=== PATIENT | female | born 1995 | race Caucasian/White ===

== ENCOUNTER 2018-02-19 22:48 | Inpatient (IN) | payer BC, OTHER ==
[2018-02-19] MEDS ORDERED: SODIUM CHLORIDE 0.9% 1,000 ML IV STA (23:01)
--- NOTE | 2018-02-19 23:19 | ED ---
General Adult HPI - General Source: patient, RN notes reviewed, old records reviewed Mode of arrival: ambulatory Limitations: no limitations <Eligio Ely - Last Filed: 02/19/18 23:18> <Masha Levy - Last Filed: 02/20/18 05:17> - General Chief complaint: Overdose Stated complaint: poss overdose Time Seen by Provider: 02/19/18 23:01 - History of Present Illness Initial comments: This is a 22-year-old female the ER for evaluation, patient resents regarding suicidal attempt, suicidal thoughts and activity. Patient did take overdose night patient states she took Seroquel and positive alcohol. Patient admits that she took all medications in attempt at suicide (Eligio Ely) - Related Data Home Medications Medication Instructions Recorded Confirmed Escitalopram [Lexapro] 1 tab PO DAILY 02/19/18 02/19/18 Allergies Allergy/AdvReac Type Severity Reaction Status Date / Time No Known Allergies Allergy Verified 02/19/18 22:51 Review of Systems ROS Other: All systems not noted in ROS Statement are negative. <Eligio Ely - Last Filed: 02/19/18 23:18> ROS Other: All systems not noted in ROS Statement are negative. <Masha Levy - Last Filed: 02/20/18 05:17> ROS Statement: Those systems with pertinent positive or pertinent negative responses have been documented in the HPI. Past Medical History Past Medical History: No Reported History History of Any Multi-Drug Resistant Organisms: None Reported Past Surgical History: No Surgical Hx Reported Past Psychological History: Anxiety, Depression Smoking Status: Never smoker Past Alcohol Use History: Occasional Past Drug Use History: None Reported <Eligio Ely - Last Filed: 02/19/18 23:18> General Exam Limitations: no limitations General appearance: alert, in no apparent distress, anxious Head exam: Present: atraumatic, normocephalic, normal inspection Eye exam: Present: normal appearance, PERRL, EOMI. Absent: scleral icterus, conjunctival injection, periorbital swelling ENT exam: Present: normal exam, mucous membranes moist Neck exam: Present: normal inspection. Absent: tenderness, meningismus, lymphadenopathy Respiratory exam: Present: normal lung sounds bilaterally. Absent: respiratory distress, wheezes, rales, rhonchi, stridor Cardiovascular Exam: Present: regular rate, normal rhythm, normal heart sounds. Absent: systolic murmur, diastolic murmur, rubs, gallop, clicks GI/Abdominal exam: Present: soft, normal bowel sounds. Absent: distended, tenderness, guarding, rebound, rigid Extremities exam: Present: normal inspection, full ROM, normal capillary refill. Absent: tenderness, pedal edema, joint swelling, calf tenderness Back exam: Present: normal inspection Neurological exam: Present: alert, oriented X3, CN II-XII intact Psychiatric exam: Present: normal affect, normal mood Skin exam: Present: warm, dry, intact, normal color. Absent: rash <Eligio Ely - Last Filed: 02/19/18 23:18> Course <Eligio Ely - Last Filed: 02/19/18 23:18> <Masha Levy - Last Filed: 02/20/18 05:17> Vital Signs 02/19/18 02/19/18 02/19/18 22:51 23:04 23:21 Temperature 98.4 F Pulse Rate 119 H 84 Respiratory 18 18 18 Rate Blood Pressure 146/97 125/82 O2 Sat by Pulse 97 98 Oximetry 02/20/18 02/20/18 02/20/18 00:18 01:31 02:51 Temperature 98.2 F 97.7 F Pulse Rate 76 96 83 Respiratory 18 18 18 Rate Blood Pressure 117/75 105/59 108/65 O2 Sat by Pulse 100 97 95 Oximetry 02/20/18 02/20/18 03:39 05:00 Temperature Pulse Rate 76 76 Respiratory 18 18 Rate Blood Pressure 105/67 112/73 O2 Sat by Pulse 97 97 Oximetry Second repeat EKG EKG was done 3:12 AM, is normal sinus rhythm ventricular rate is 81 IL interval is 1:30 QRS duration is 76 QT/QTc is 42/466 review of this EKG reveals T-wave inversion in lead 3 and lead aVF no ST elevation or ST depression noticed in the other leads (Masha Levy) EKG Findings - EKG Comments: EKG Findings:: EKG shows normal sinus rhythm rate of 99, IL 120, QRS 70, QTc 472 <Eligio Ely Last Filed: 02/19/18 23:18> Medical Decision Making - Lab Data Result diagrams: 02/19/18 23:09 02/19/18 23:09 <CamMasha - Last Filed: 02/20/18 05:17> - Lab Data Lab Results 02/19/18 02/19/18 02/19/18 Range/Units 23:09 23:09 23:09 WBC 6.2 (3.8-10.6) k/uL RBC 4.66 (3.80-5.40) m/uL Hgb 14.6 (11.4-16.0) gm/dL Hct 43.7 (34.0-46.0) % MCV 93.8 (80.0-100.0) fL MCH 31.3 (25.0-35.0) pg MCHC 33.4 (31.0-37.0) g/dL RDW 12.4 (11.5-15.5) % Plt Count 242 (150-450) k/uL Neutrophils % 43 % Lymphocytes % 49 % Monocytes % 4 % Eosinophils % 2 % Basophils % 1 % Neutrophils # 2.6 (1.3-7.7) k/uL Lymphocytes # 3.0 (1.0-4.8) k/uL Monocytes # 0.2 (0-1.0) k/uL Eosinophils # 0.1 (0-0.7) k/uL Basophils # 0.1 (0-0.2) k/uL PT (9.0-12.0) sec INR (<1.2) Sodium 146 H (137-145) mmol/L Potassium 4.0 (3.5-5.1) mmol/L Chloride 106 (98-107) mmol/L Carbon Dioxide 26 (22-30) mmol/L Anion Gap 14 mmol/L BUN 12 (7-17) mg/dL Creatinine 0.78 (0.52-1.04) mg/dL Est GFR (CKD-EPI)AfAm >90 (>60 ml/min/1.73 sqM) Est GFR (CKD-EPI)NonAf >90 (>60 ml/min/1.73 sqM) Glucose 81 (74-99) mg/dL Calcium 9.3 (8.4-10.2) mg/dL Total Bilirubin 0.3 (0.2-1.3) mg/dL AST 28 (14-36) U/L ALT 35 (9-52) U/L Alkaline Phosphatase 61 (38-126) U/L Total Creatine Kinase 368 H (30-135) U/L CK-MB (CK-2) 5.7 H* (0.0-2.4) ng/mL CK-MB (CK-2) Rel Index 1.5 Total Protein 7.4 (6.3-8.2) g/dL Albumin 4.7 (3.5-5.0) g/dL Lipase 114 (23-300) U/L Urine Color Urine Appearance (Clear) Urine pH (5.0-8.0) Ur Specific [place] (1.001-1.035) Urine Protein (Negative) Urine Glucose (UA) (Negative) Urine Ketones (Negative) Urine Blood (Negative) Urine Nitrite (Negative) Urine Bilirubin (Negative) Urine Urobilinogen (<2.0) mg/dL Ur Leukocyte Esterase (Negative) Urine HCG, Qual (Not Detectd) Salicylates <1.0 mg/dL Urine Opiates Screen (NotDetected) Ur Oxycodone Screen (NotDetected) Urine Methadone Screen (NotDetected) Ur Propoxyphene Screen (NotDetected) Acetaminophen <10.0 ug/mL Ur Barbiturates Screen (NotDetected) U Tricyclic Antidepress (NotDetected) Ur Phencyclidine Scrn (NotDetected) Ur Amphetamines Screen (NotDetected) U Methamphetamines Scrn (NotDetected) U Benzodiazepines Scrn (NotDetected) Urine Cocaine Screen (NotDetected) U Marijuana (THC) Screen (NotDetected) Serum Alcohol 163 mg/dL 02/19/18 02/19/18 02/19/18 Range/Units 23:09 23:09 23:09 WBC (3.8-10.6) k/uL RBC (3.80-5.40) m/uL Hgb (11.4-16.0) gm/dL Hct (34.0-46.0) % MCV (80.0-100.0) fL MCH (25.0-35.0) pg MCHC (31.0-37.0) g/dL RDW (11.5-15.5) % Plt Count (150-450) k/uL Neutrophils % % Lymphocytes % % Monocytes % % Eosinophils % % Basophils % % Neutrophils # (1.3-7.7) k/uL Lymphocytes # (1.0-4.8) k/uL Monocytes # (0-1.0) k/uL Eosinophils # (0-0.7) k/uL Basophils # (0-0.2) k/uL PT 10.1 (9.0-12.0) sec INR 1.0 (<1.2) Sodium (137-145) mmol/L Potassium (3.5-5.1) mmol/L Chloride (98-107) mmol/L Carbon Dioxide (22-30) mmol/L Anion Gap mmol/L BUN (7-17) mg/dL Creatinine (0.52-1.04) mg/dL Est GFR (CKD-EPI)AfAm (>60 ml/min/1.73 sqM) Est GFR (CKD-EPI)NonAf (>60 ml/min/1.73 sqM) Glucose (74-99) mg/dL Calcium (8.4-10.2) mg/dL Total Bilirubin (0.2-1.3) mg/dL AST (14-36) U/L ALT (9-52) U/L Alkaline Phosphatase (38-126) U/L Total Creatine Kinase (30-135) U/L CK-MB (CK-2) (0.0-2.4) ng/mL CK-MB (CK-2) Rel Index Total Protein (6.3-8.2) g/dL Albumin (3.5-5.0) g/dL Lipase (23-300) U/L Urine Color Colorless Urine Appearance Clear (Clear) Urine pH 5.5 (5.0-8.0) Ur Specific [place] 1.003 (1.001-1.035) Urine Protein Negative (Negative) Urine Glucose (UA) Negative (Negative) Urine Ketones Negative (Negative) Urine Blood Negative (Negative) Urine Nitrite Negative (Negative) Urine Bilirubin Negative (Negative) Urine Urobilinogen <2.0 (<2.0) mg/dL Ur Leukocyte Esterase Negative (Negative) Urine HCG, Qual Not Detected (Not Detectd) Salicylates mg/dL Urine Opiates Screen Not Detected (NotDetected) Ur Oxycodone Screen Not Detected (NotDetected) Urine Methadone Screen Not Detected (NotDetected) Ur Propoxyphene Screen Not Detected (NotDetected) Acetaminophen ug/mL Ur Barbiturates Screen Not Detected (NotDetected) U Tricyclic Antidepress Not Detected (NotDetected) Ur Phencyclidine Scrn Not Detected (NotDetected) Ur Amphetamines Screen Not Detected (NotDetected) U Methamphetamines Scrn Not Detected (NotDetected) U Benzodiazepines Scrn Not Detected (NotDetected) Urine Cocaine Screen Not Detected (NotDetected) U Marijuana (THC) Screen Not Detected (NotDetected) Serum Alcohol mg/dL Disposition <Eligio Ely - Last Filed: 02/19/18 23:18> <Masha Levy - Last Filed: 02/20/18 05:17> Clinical Impression: Suicidal ideation Disposition: ADMITTED IP TO THIS [facility] Condition: Good Referrals: Renny Mae Jr, DO [Primary Care Provider] - 1-2 days
[2018-02-19 23:26] LABS: Basophils # (A) 0.1 k/uL (0-0.2); Basophils % (A) 1 %; Eosinophils # (A) 0.1 k/uL (0-0.7); Eosinophils % (A) 2 %; HCT 43.7 % (34.0-46.0); HGB 14.6 gm/dL (11.4-16.0); Lymphocytes % (A) 49 %; MCH 31.3 pg (25.0-35.0); MCHC 33.4 g/dL (31.0-37.0); MCV 93.8 fL (80.0-100.0); Mean Platelet Volume 6.9; Monocytes # (A) 0.2 k/uL (0-1.0); Monocytes % (A) 4 %; Neutrophils # (A) 2.6 k/uL (1.3-7.7); Neutrophils % (A) 43 %; Platelet Count 242 k/uL (150-450); RBC 4.66 m/uL (3.80-5.40); RDW 12.4 % (11.5-15.5); WBC 6.2 k/uL (3.8-10.6)
[2018-02-19 23:29] LABS: Appearance,Urine Clear (Clear); Bilirubin,Urine Negative (Negative); Blood,Urine Negative (Negative); Color,Urine Colorless; Glucose,Urine (UA) Negative (Negative); Ketones,Urine Negative (Negative); Leukocyte Esterase,Urine Negative (Negative); Nitrite,Urine Negative (Negative); PH, Urine 5.5 (5.0-8.0); Protein,Urine Negative (Negative); Specific Gravity,Urine 1.003 (1.001-1.035); Urobilinogen,Urine <2.0 mg/dL (<2.0)
[2018-02-19 23:34] LABS: Prothrombin Time 10.1 sec (9.0-12.0)
[2018-02-19 23:41] LABS: ALT 35 U/L (9-52); AST 28 U/L (14-36); Acetaminophen <10.0 ug/mL; Albumin 4.7 g/dL (3.5-5.0); Alkaline Phosphatase 61 U/L (38-126); Anion Gap 14 mmol/L; Blood Urea Nitrogen 12 mg/dL (7-17); Calcium 9.3 mg/dL (8.4-10.2); Carbon Dioxide 26 mmol/L (22-30); Chloride 106 mmol/L (98-107); Glucose 81 mg/dL (74-99); Lipase 114 U/L (23-300); Salicylate <1.0 mg/dL; Sodium 146 mmol/L (137-145); Total Bilirubin 0.3 mg/dL (0.2-1.3); Total Protein 7.4 g/dL (6.3-8.2)
[2018-02-19 23:44] LABS: Alcohol 163 mg/dL
[2018-02-20 00:02] LABS: Creatine Kinase MB 5.7 ng/mL (0.0-2.4)
[2018-02-20 01:10] LABS: Amphetamine Screen,Urine Not Detected (NotDetected); Barbiturate Screen,Urine Not Detected (NotDetected); Benzodiazepines Screen,Urine Not Detected (NotDetected); Cocaine Screen,Urine Not Detected (NotDetected); Methadone Screen, Urine Not Detected (NotDetected); Opiate Screen,Urine Not Detected (NotDetected); Oxycodone Screen, Urine Not Detected (NotDetected); Phencyclidine Screen,Urine Not Detected (NotDetected); Tricyclic Antidepressant,Urine Not Detected (NotDetected)
[2018-02-20 01:11] LABS: Urn Cannabinoid Scrn Not Detected (NotDetected)
[2018-02-20] MEDS ORDERED: MAGNESIUM HYDROXIDE 2,400 MG/10 ML CUP PO PRN (05:25)
[2018-02-20] MEDS ORDERED: ACETAMINOPHEN TAB 325 MG TAB PO PRN (05:25)
[2018-02-20] MEDS ORDERED: MAG HYDROX/AL HYDROX/SIMETH 30 ML CUP PO PRN (05:25)
[2018-02-20 06:10] VITALS: RESP 16; BMI 22.4
[2018-02-20 11:31] LABS: Cholesterol 150 mg/dL (<200); HDL Cholesterol 96 mg/dL (40-60); LDL Cholesterol,Calculated 39 mg/dL (0-99); Triglycerides 77 mg/dL (<150)
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
--- NOTE | 2018-02-20 16:08 | P.MDCNMH ---
History of Present Illness H&P Date: 02/20/18 Chief Complaint: medical management 22-year-old female who presented to the emergency room on 02/19/2018 after taking 8 lexapro and drinking alcohol which she reports as a suicide attempt. She has anxiety and panic attacks. Patient states after she took the medication, she regretted it and asked for help. She was admitted to the mental health unit. Dr. Mae was consulted for medical management. The patients medical history only consists of anxiety and depression. She is a nonsmoker. She reports occasional alcohol use. CBC was within normal limits. CMP revealed sodium of 146. Total creatine kinase was 368. CK-MB 5.7. Urinalysis was negative. Urine hCG negative. Toxicology was negative. Serum alcohol 163. Review of Systems GENERAL: Patient denies fever. Denies chills. EYES: Denies blurred vision. Denies vision changes. Denies eye pain. EARS, NOSE, MOUTH, & THROAT: Denies headache. Denies sore throat. Denies ear pain. RESPIRATORY: Denies cough. Denies shortness of breath. Denies sputum production. Denies hemoptysis. CARDIOVASCULAR: Denies chest pain or pressure. Denies palpitations. Denies arrhythmias. GASTROINTESTINAL: Denies abdominal pain. Denies diarrhea. Denies constipation. Denies nausea. Denies vomiting. Denies heartburn. Denies blood in the stool. GENITOURINARY: Denies urinary frequency. Denies burning. Denies dysuria. Denies cloudy urine. Denies blood in the urine. MUSCULOSKELETAL: Denies myalgias. Denies joint swelling. Denies decreased range of motion beyond patients baseline. INTEGUMENTARY: Denies pruitis. Denies rash. PSYCHIATRIC: Positive for anxiety and depression. Positive for suicidal ideations before admission. Negative for homicidal ideations. ENDOCRINE: Denies weight change. Denies polydipsia. Denies polyuria. HEMATOLOGIC: Denies bleeding disorders. Past Medical History Past Medical History: No Reported History History of Any Multi-Drug Resistant Organisms: None Reported Past Surgical History: No Surgical Hx Reported Past Psychological History: Anxiety, Depression Smoking Status: Never smoker Past Alcohol Use History: Occasional Past Drug Use History: None Reported Medications and Allergies Home Medications Medication Instructions Recorded Confirmed Type Escitalopram [Lexapro] 1 tab PO DAILY 02/19/18 02/20/18 History Allergies Allergy/AdvReac Type Severity Reaction Status Date / Time No Known Allergies Allergy Verified 02/20/18 05:28 Physical Exam Vitals: Vital Signs Temp Pulse Pulse Resp BP BP Pulse Ox 02/20/18 06:08 97.4 F L 60 16 88/55 02/20/18 06:02 98.0 F 80 16 113/73 97 02/20/18 05:32 99.1 F 86 18 115/77 98 02/20/18 05:00 76 18 112/73 97 02/20/18 03:39 76 18 105/67 97 02/20/18 02:51 97.7 F 83 18 108/65 95 02/20/18 01:31 98.2 F 96 18 105/59 97 02/20/18 00:18 76 18 117/75 100 02/19/18 23:21 84 18 125/82 98 02/19/18 23:04 18 02/19/18 22:51 98.4 F 119 H 18 146/97 97 Intake and Output 02/19/18 02/20/18 02/20/18 22:59 06:59 14:59 Other: Weight 61.235 kg 61.292 kg GENERAL: This is a 22-year-old female in no apparent distress at the time of examination. Pleasant and cooperative. HEENT: Head is atraumatic, normocephalic. Pupils are equal, round, and reactive to light. Sclerae anicteric. Conjunctivae are clear. Mucus membranes of the mouth are moist. Neck is supple. RESPIRATORY: Clear to ausculation. No wheezes, rales, or rhonchi. No use of accessory muscles. Patient maintaining oxygen saturation greater than 92%. No chest wall tenderness is noted on palpation or with deep breathing. CARDIOVASCULAR: Regular rate and rhythm. S1 and S2 noted. No systolic or diastolic murmur auscultated. No JVD noted. No S3 or S4 noted. GASTROINTESTINAL: No distention noted. Abdomen soft and round. Normal active bowel sounds auscultated x 4 quadrants. No pain or tenderness noted upon palpation. INTEGUMENTARY: No cyanosis. No jaundice. No rashes noted. No cellulitis noted. EXTREMITIES: 2+ peripheral pulses. No evidence of peripheral edema. No calf tenderness noted. NEUROLOGIC: Cranial nerves II-XII intact. PSYCHIATRIC: Awake, alert, and oriented X 3. Appropriate affect. Intact judgement and insight. Cranial Nerve Examination - Cranial Nerves Cranial Nerve II- Optic: Intact Cranial Nerve III- Oculomotor: Intact Cranial Nerve IV- Trochlear: Intact Cranial Nerve V- Trigeminal: Intact Cranial Nerve - Abducens: Intact Cranial Nerve VII- Facial: Intact Cranial Nerve VIII- Auditory: Intact Cranial Nerve IX- Glossopharyngeal: Intact Cranial Nerve X- Vagus: Intact Cranial Nerve XI- Accessory: Intact Cranial Nerve XII- Hypoglossal: Intact Results CBC & Chem 7: 02/19/18 23:09 02/19/18 23:09 Labs: Abnormal Lab Results - Last 24 Hours (Table) 02/19/18 02/19/18 Range/Units 23:09 23:09 Sodium 146 H (137-145) mmol/L Total Creatine Kinase 368 H (30-135) U/L CK-MB (CK-2) 5.7 H* (0.0-2.4) ng/mL Assessment and Plan Plan: ASSESSMENT: Suicide attempt, patient consumed ETOH and 8 lexapro Generalized anxiety disorder Major depressive disorder PLAN: Continue mental health care per psychiatry. Resume lexapro when okay with psychiatry or discontinue if psychiatry feels patient may benefit from different medication. Will follow with you as needed. Thank you for this consultation. Nurse practitioner note has been reviewed by physician. Signing provider agrees with the documented findings, assessment, and plan of care.
[2018-02-20 20:02] LABS: Hemoglobin A1C 4.9 % (4.0-6.0)
[2018-02-21 06:52] VITALS: BP 118/74; PULSE 77; TEMP 97.9
[2018-02-21] MEDS ORDERED: SERTRALINE 25 MG TAB PO SCH (09:00)
--- NOTE | 2018-02-21 10:07 | P.DS ---
Providers Date of admission: 02/20/18 05:17 Expected date of discharge: 02/21/18 Attending physician: Ron Thomson Consults: 02/20/18 05:25 Consult Physician Routine Consulting Provider: Renny Mae Jr Consult Reason/Comments: For H & P for Medical Follow Up Do you want consulting provider notified?: Yes Primary care physician: Renny Mae - Discharge Diagnosis(es) (1) Major depressive disorder, recurrent severe without psychotic features Current Visit: Yes Status: Acute Priority: High (2) Generalized anxiety disorder Current Visit: Yes Status: Acute Priority: Medium Hospital Course: Brief summary admission note: This patient is a 22-year-old single female who was admitted to the mental health unit through the emergency room after a suicide attempts via medication overdose in the context of alcohol use. The patient had overdosed with 8 Lexapro tablets in the context of consuming alcohol. At some point during the evening she became dysphoric and took the medication in the presence of her boyfriend. She informed him and she was brought to the hospital. She relays a long history of depression and anxiety symptoms. She describes significant genetic loading for the same symptoms. For full details please refer to my psychiatric evaluation dictated 02/20/2018. Summary of hospital course: The patient was admitted to the mental health unit voluntarily. We reviewed her presenting symptoms and treatment options. We decided to discontinue Lexapro and initiate Zoloft for depressive and anxiety symptoms. She was seen by internal medicine for routine history and physical exam. She has been cooperative and participating in the milieu. She reports having a good visit with her family last evening. She believes her parents would be willing to participate in a support meeting. She states that she has no suicidal ideation and is agreeable to abstain from any alcohol use. She is hopeful that she will work with an individual therapist and that the medication change will be beneficial. Mental status exam: The patient is a female appearing her stated age. Hygiene and grooming are good. She is dressed in her own clothing. Eye contact is appropriate speech is fluent spontaneous nonpressured. She reports her mood is better. She denies having any hopelessness thinking or any suicidal ideation intent or plan. She is reporting no homicidal ideation intent or plan. She demonstrates no tangential thinking loose associations or flight of ideas. Thought process is linear and goal-directed. She reports no auditory or visual hallucinations she reports no specific delusions and there is no observed evidence of psychosis. She demonstrates no verbal or physical aggressiveness no abnormal involuntary movements. She remains oriented to person place and date. Impression 1. Major depressive disorder recurrent severe without psychosis, generalized anxiety disorder Plan: The patient will continue on Zoloft 25 mg for the next 2 days then increase to 50 mg daily. Social work will arrange for outpatient mental health follow-up. We will plan to discharge her today after a successful support meeting involving family. She is instructed to abstain from all alcohol use and she is agreeable. There is no imminent safety risk she is appropriate for transition outpatient care. She is instructed to return to the hospital with any acute safety concerns. Patient Condition at Discharge: Stable Plan - Discharge Summary New Discharge Prescriptions: New Sertraline HCl [Zoloft] 50 mg PO DAILY #30 tablet Discontinued Escitalopram [Lexapro] 1 tab PO DAILY Discharge Medication List Sertraline HCl [Zoloft] 50 mg PO DAILY #30 tablet 02/21/18 [Rx] Follow up Appointment(s)/Referral(s): Renny Mae Jr, [Primary Care Provider] - 1-2 days
== END 2018-02-21 13:45 | disposition home or self-care (01) | DRG 885 ==
LOC: EC 22:48 → 3MHU 02-20 05:17
PROVIDERS: ADMIT Psychiatry & Neurology Psychiatry; ATTEND Psychiatry & Neurology Psychiatry
DX: F33.2 Major depressive disorder, recurrent severe without psychotic features (principal); F41.1 Generalized anxiety disorder; T43.591A Poisoning by other antipsychotics and neuroleptics, accidental (unintentional), initial encounter; F10.129 Alcohol abuse with intoxication, unspecified; Y90.6 Blood alcohol level of 120-199 mg/100 ml; Z79.899 Other long term (current) drug therapy; Z81.8 Family history of other mental and behavioral disorders; Z91.410 Personal history of adult physical and sexual abuse
CPT/HCPCS: 36415; 80053; 80061; 80306; 80320; 81003; 81025; 82075; 82550; 82553; 83036; 83520; 83690; 84443; 85025; 85610; 93005; 96360; 96361; 99285